=== PATIENT | male | born 1935 | race Asian ===

== ENCOUNTER 2016-08-29 11:07 | Observation (INO) | payer OTHER, MEDICAID ==
[~2016-08-29] VITALS: Ht 170.2 cm; Wt 72.6 kg
[2016-08-29] MEDS ORDERED: DILTIAZEM HCL 25 MG/5 ML VIAL IV ONE ×3 (11:24→13:30)
[2016-08-29] MEDS ORDERED: SODIUM CHLORIDE 0.9% 1,000 ML IV ONE (11:30)
[2016-08-29 11:45] LABS: Basophils # (auto) 0 uL; Basophils % (auto) 0.4 % (0.0-2.0); CONDITION Y; DEFINITIVE SEE PRINTOUT; Eosinophils # (auto) 0 uL; Eosinophils % (auto) 0.7 % (0.0-7.0); Hematocrit 29.4 % (41.0-53.0); Hemoglobin 9.7 g/dL (13.5-17.5); Lymphocytes # (auto) 1.6 uL; Mean Corpuscular Hemoglobin 37.2 pg (28.0-32.0); Mean Corpuscular Volume 112.7 fL (80.0-100.0); Mean Platelet Volume 10.3 fL (7.4-10.4); Monocytes # (auto) 0.4 uL; Monocytes % (auto) 10.5 % (0.0-12.0); Neutrophils # (auto) 1.4 uL; Neutrophils % (auto) 41.4 % (37.0-80.0); SUSPECT SEE PRINTOUT; White Blood Cell 3.5 10^3/uL (4.4-10.8)
[2016-08-29 12:10] LABS: INR 0.99 (0.9-1.15); Partial Thromboplastin Time 24.8 sec (22.64-33.71); Prothrombin Time 10.8 sec (9.37-12.3)
[2016-08-29 12:12] LABS: Albumin 2.6 g/dL (3.4-5.0); Alkaline Phosphatase 283 U/L (45-117); Anion Gap 8 (5-15); Aspartate Aminotransferase 31 U/L (15-37); Bilirubin, Total 0.8 mg/dL (0.2-1.0); Blood Urea Nitrogen 15 mg/dL (7-18); Calcium 8.5 mg/dL (8.5-10.1); Carbon Dioxide 22 mmol/L (21-32); Chloride 102 mmol/L (98-107); GFR African American 107 mL/min; GFR Non-African American 89 mL/min; Glucose 138 mg/dL (74-106); Magnesium 2.3 mg/dL (1.6-2.6); Potassium 3.7 mmol/L (3.5-5.1); Sodium 132 mmol/L (136-145); Total Protein 9.5 g/dL (6.4-8.2)
[2016-08-29 12:17] LABS: B-Type Natriuretic Peptide 360.16 pg/mL (0-100)
[2016-08-29 12:32] LABS: Temperature: 24.3 C (20.0-25.0)
[2016-08-29 12:51] LABS: Red Cell Distribution Width 20.9 % (11.6-16.0)
[2016-08-29 13:00] LABS: Platelet Count (auto) 13 10^3/uL (140-450)
[2016-08-29 13:01] LABS: Platelet Estimate Adequate
[2016-08-29 13:02] LABS: Macrocytosis Marked; Platelet Clumps MANY
[2016-08-29 13:03] LABS: Anisocytosis Slight
[2016-08-29 13:12] LABS: Lactic Acid w/Reflex 2.3 mmol/L (0.4-2.0)
[2016-08-29 13:13] LABS: REFLEX LACTIC ACID YES OR NO YES
[2016-08-29 13:47] VITALS: BP 150/97
== END 2016-08-29 14:11 | disposition short-term general hospital (02) | DRG 85 ==
LOC: ER 11:07 → OVERFLOW 11:34 → ER 14:10
PROVIDERS: ADMIT Family Medicine; ATTEND Family Medicine
DX: S06.6X0A Traumatic subarachnoid hemorrhage without loss of consciousness, initial encounter (principal); G93.41 Metabolic encephalopathy; S00.83XA Contusion of other part of head, initial encounter; R79.1 Abnormal coagulation profile; I67.2 Cerebral atherosclerosis; I48.91 Unspecified atrial fibrillation; V98.8XXA Other specified transport accidents, initial encounter; Y93.89 Activity, other specified; Y92.410 Unspecified street and highway as the place of occurrence of the external cause; Y99.8 Other external cause status
CPT/HCPCS: 36415; 70450; 71020; 80053; 80320; 83605; 83735; 83880; 84443; 84484; 85025; 85379; 85610; 85730; 87040; 96361; 96374; 96376; 99291; G0378; 93005